=== PATIENT | female | born 1975 | race Caucasian/White ===

== ENCOUNTER 2019-12-26 17:17 | Emergency (ER) | payer OTHER ==
[~2019-12-26] VITALS: Ht 172.7 cm; Wt 128.4 kg
[2019-12-26] MEDS ORDERED: ZIAC 2.5-6.251 EACH PO (17:26)
[2019-12-26] MEDS ORDERED: KETO10TA2 PO (22:39)
[2019-12-26] MEDS ORDERED: MORGIDOX100 MG PO (22:39)
== END 2019-12-26 23:30 | disposition home or self-care (01) ==
LOC: ER 17:17
DX: N70.11 Chronic salpingitis (principal); K29.70 Gastritis, unspecified, without bleeding; Z20.828 Contact with and (suspected) exposure to other viral communicable diseases

== ENCOUNTER 2021-04-15 11:00 | Outpatient (CLI) | payer OTHER ==
[~2021-04-15 11:00] MED LIST: KETO10TA2 PO; MORGIDOX100 MG PO; ZIAC 2.5-6.251 EACH PO
== END 2021-04-15 11:30 | disposition home or self-care (01) ==
LOC: PPH VACUNA 11:00
PROVIDERS: ATTEND Emergency Medicine Pediatric Emergency Medicine
DX: Z23 Encounter for immunization (principal)